=== PATIENT | female | born 2000 | race Caucasian/White ===

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

== ENCOUNTER 2019-03-25 13:05 | Emergency (ER) | payer SELFPAY ==
[2019-03-25 13:35] VITALS: O2SAT 100
--- NOTE | 2019-03-25 14:09 | ED.PDOC ---
History of Present Illness - General Chief Complaint: Abdominal Pain Stated Complaint: right sided abdominal pain Time Seen by Provider: 03/25/19 13:35 Information Source: patient Exam Limitations: no limitations - History of Present Illness Initial Comments: 18 yo F with hx of depression who presents for abd pain onset two weeks ago, diffuse, constant, associated nausea and diarrhea. Hx of chronic constipation with intermittent diarrhea. Was constipated for the past three days and took milk of mag today, now with NB diarrhea. Denies f/c, cough, congestion, CP, SOB, vomiting, urinary sx, vag sx. Review of Systems - Review of Systems Constitutional: Denies: chills, fever EENTM: Denies: nose congestion, throat pain Respiratory: Denies: cough, short of breath Cardiology: Denies: chest pain, palpitations Gastrointestinal/Abdominal: States: abdominal pain, constipation, diarrhea, nausea. Denies: vomiting Genitourinary: Denies: dysuria, frequency, hematuria Musculoskeletal: Denies: back pain, neck pain Skin: Denies: lesions, rash Neurological: Denies: headache, numbness, weakness Endocrine: Denies: increased thirst, increased urine Hematologic/Lymphatic: Denies: easy bleeding, easy bruising Past Medical History (General) - Patient Medical History Hx Seizures: No Hx Stroke: No Hx Dementia: No Hx Asthma: No Hx of COPD: No Hx Cardiac Disorders: No Hx Congestive Heart Failure: No Hx Pacemaker: No Hx Hypertension: No Hx Thyroid Disease: No Hx Diabetes: No Hx Gastroesophageal Reflux: No Hx Renal Disease: No Hx Cancer: No Hx of HIV: No Hx Hepatitis C: No Hx MRSA: No MRSA Source:: Wound - Vaccination History Hx Tetanus, Diphtheria Vaccination: Yes Hx Influenza Vaccination: No Hx Pneumococcal Vaccination: No - Social History Hx Tobacco Use: Yes Hx Chewing Tobacco Use: No Hx Alcohol Use: No Hx Substance Use: No Hx Substance Use Treatment: No Hx Depression: Yes Hx Physical Abuse: No Hx Emotional Abuse: No Hx Suspected Abuse: No - Female History Patient is a Female of Child Bearing Age (10 -59 yrs old): Yes Hx Last Menstrual Period: 04/05/18 Patient : No Family Medical History - Family History Mother Family History: Unknown Hx Family Hypertension: Yes - dad Hx Family Diabetes: Yes - dad Physical Exam - Physical Exam General Appearance: Alert, Comfortable, No apparent distress, Well Developed, Well Nourished Eyes, Ears, Nose, Throat Exam: normal ENT inspection Neck: full range of motion, supple Respiratory: chest non-tender, lungs clear, normal breath sounds, no respiratory distress, no accessory muscle use Cardiovascular/Chest: normal peripheral pulses, regular rate, rhythm, no edema, no gallop, no JVD, no murmur Peripheral Pulses: No deficit Gastrointestinal/Abdominal: normal bowel sounds, soft, no organomegaly, no pulsatile mass, other - Generalized discomfort Back Exam: normal inspection, no CVA tenderness, no vertebral tenderness Extremity: normal range of motion, non-tender, normal inspection, no pedal edema Neurologic: no motor/sensory deficits, alert, normal mood/affect, oriented x 3 Skin Exam: normal color, warm/dry, other - healed lacerations to wrist Progress - Progress Progress: I have explained and reviewed all results with the pt. Pt is feeling better, comfortable wtih d/c home. I explained that emergent conditions may arise and to return to the ER for new, worsening, or any persistent conditions. I've explained the importance of f/u for recheck. All questions and concerns addressed at this time. Pt understands and agrees with plan. Pt well appearing, NAD, is stable for discharge. Rosey Sidhu MD Emergency Medicine Physician Billing Number [id number] - Results/Orders Results/Orders: 03/25/19 14:07 Hold Metformin x 48Hrs [id number] Laboratory Results - last 24 hr 03/25/19 03/25/19 03/25/19 13:48 13:48 13:48 WBC 7.1 RBC 4.74 Hgb 14.2 Hct 42.8 MCV 90.4 MCH 30.0 MCHC 33.2 RDW 13.3 Plt Count 315 MPV 8.7 Absolute Neuts (auto) 4.60 Absolute Lymphs (auto) 1.70 Absolute Monos (auto) 0.70 Absolute Eos (auto) 0.10 Absolute Basos (auto) 0.10 Neutrophils % 65.3 Lymphocytes % 23.5 Monocytes % 9.5 H Eosinophils % 1.0 Basophils % 0.7 Sodium 142 Potassium 3.5 L Chloride 104 Carbon Dioxide 30 Anion Gap 11.5 L BUN 13 Creatinine 0.83 BUN/Creatinine Ratio 15.7 Random Glucose 110 H Serum Osmolality 283.9 Calcium 9.6 Total Bilirubin 0.9 AST 20 ALT 20 Alkaline Phosphatase 65 L Serum Total Protein 8.1 Albumin 4.6 Globulin 3.5 Albumin/Globulin Ratio 1.3 Lipase 35 Serum HCG, Qual Negative Urine Color Urine Appearance Urine pH Ur Specific [place] Urine Protein Urine Glucose (UA) Urine Ketones Urine Blood Urine Nitrite Urine Bilirubin Urine Urobilinogen Ur Leukocyte Esterase Urine RBC Urine WBC Ur Epithelial Cells Triple Phos Crystals Amorphous Sediment Urine Bacteria 03/25/19 14:15 WBC RBC Hgb Hct MCV MCH MCHC RDW Plt Count MPV Absolute Neuts (auto) Absolute Lymphs (auto) Absolute Monos (auto) Absolute Eos (auto) Absolute Basos (auto) Neutrophils % Lymphocytes % Monocytes % Eosinophils % Basophils % Sodium Potassium Chloride Carbon Dioxide Anion Gap BUN Creatinine BUN/Creatinine Ratio Random Glucose Serum Osmolality Calcium Total Bilirubin AST ALT Alkaline Phosphatase Serum Total Protein Albumin Globulin Albumin/Globulin Ratio Lipase Serum HCG, Qual Urine Color Yellow Urine Appearance Cloudy Urine pH 7.5 Ur Specific [place] 1.020 Urine Protein Negative Urine Glucose (UA) Negative Urine Ketones Negative Urine Blood Negative Urine Nitrite Negative Urine Bilirubin Negative Urine Urobilinogen 0.2 Ur Leukocyte Esterase Negative Urine RBC 0 Urine WBC 0-1 Ur Epithelial Cells 5-10 Triple Phos Crystals 1+ Amorphous Sediment 2+ Urine Bacteria Rare CT abd/pelvis: EXAM DESCRIPTION: Abdomen/Pelvis w/Contrast CLINICAL HISTORY: 18 years Female, abd pain COMPARISON: None available. TECHNIQUE: Contiguous 3 mm axial images were obtained from the lung bases to the level of the proximal femora after the administration of intravenous and oral contrast. Sagittal and coronal reconstructions were reviewed. FINDINGS: THORAX: The imaged lower thorax demonstrates no gross abnormality. LIVER: The liver demonstrates normal size and density with no intrahepatic biliary ductal dilatation or focal masses. GALLBLADDER: Grossly unremarkable. PANCREAS: Appears normal with no cystic or solid lesions. SPLEEN: Normal ADRENAL GLANDS: Normal with no nodules or masses. KIDNEYS: Both kidneys enhance symmetrically with no hydronephrosis or nephrolithiasis or perinephric fluid collections. No focal masses are identified. The visualized ureters appear grossly unremarkable. STOMACH: Not well distended limiting detailed evaluation. SMALL BOWEL: The small bowel loops demonstrate variable degrees of distention with no abnormal dilatation or other signs to suggest bowel obstruction. LARGE BOWEL: Colon is not well-distended limiting detailed evaluation. The appendix is not definitively visualized, however no secondary signs to suggest acute appendicitis. No evidence of free intraperitoneal air or fluid. RETROPERITONEUM: The abdominal aorta is nonaneurysmal with no significant atherosclerosis. The inferior vena cava is normal in size and caliber. Multiple subcentimeter mesenteric lymph nodes are identified most like representing mesenteric adenitis. URINARY BLADDER:The urinary bladder is well-distended with no gross abnormality. The uterus and adnexa appear normal. ADDITIONAL FINDINGS: None. BONES: No significant degenerative changes are identified in the visualized bones.No evidence of osteophytic or osteoblastic lesions. IMPRESSION: No acute intra-abdominal or intrapelvic process. Multiple subcentimeter mesenteric lymph nodes could represent mesenteric adenitis. This exam was performed according to our departmental dose-optimization program, which includes automated exposure control, adjustment of the mA and/or kV according to patient size and/or use of iterative reconstruction technique. Electronically signed by: Christy Giordano MD 03/25/2019 2:47 PM PUBLISHING DIRECTOR Vital Signs - 24 hr 03/25/19 13:32 Temperature 96.7 F L Pulse Rate [ 98 H Left Brachial] Respiratory 20 Rate Blood Pressure 130/89 [Left Arm] O2 Sat by Pulse 100 Oximetry Departure - Departure Clinical Impression: Acute abdominal pain, Alternating constipation and diarrhea, Mesenteric lymphadenopathy Time of Disposition: 15:07 Disposition: Discharge to Home or Self Care Health Concerns: condition: stable Departure Forms: ED Discharge - Pt. Copy, Patient Portal Self Enrollment Instructions: DI for Abdominal Pain-Adult Referrals: CARLYLE SARKAR MD [Primary Care Provider] - 1-5 Days ALEXIS WALL MD [Consulting Staff] - 1 Week Prescriptions: Ondansetron Odt [Zofran ODT] 4 mg PO Q6H PRN #12 tab PRN Reason: Nausea Home Medications: Ambulatory Orders Buspirone HCl 03/25/19 Ondansetron Odt [Zofran ODT] 4 mg PO Q6H PRN #12 tab 03/25/19 [email or web address] 03/25/19 Additional Instructions: Follow up: [facility] As needed, if symptoms worsen
--- NOTE | 2019-03-25 14:48 | CT ---
EXAM DESCRIPTION: Abdomen/Pelvis w/Contrast CLINICAL HISTORY: 18 years Female, abd pain COMPARISON: None available. TECHNIQUE: Contiguous 3 mm axial images were obtained from the lung bases to the level of the proximal femora after the administration of intravenous and oral contrast. Sagittal and coronal reconstructions were reviewed. FINDINGS: THORAX: The imaged lower thorax demonstrates no gross abnormality. LIVER: The liver demonstrates normal size and density with no intrahepatic biliary ductal dilatation or focal masses. GALLBLADDER: Grossly unremarkable. PANCREAS: Appears normal with no cystic or solid lesions. SPLEEN: Normal ADRENAL GLANDS: Normal with no nodules or masses. KIDNEYS: Both kidneys enhance symmetrically with no hydronephrosis or nephrolithiasis or perinephric fluid collections. No focal masses are identified. The visualized ureters appear grossly unremarkable. STOMACH: Not well distended limiting detailed evaluation. SMALL BOWEL: The small bowel loops demonstrate variable degrees of distention with no abnormal dilatation or other signs to suggest bowel obstruction. LARGE BOWEL: Colon is not well-distended limiting detailed evaluation. The appendix is not definitively visualized, however no secondary signs to suggest acute appendicitis. No evidence of free intraperitoneal air or fluid. RETROPERITONEUM: The abdominal aorta is nonaneurysmal with no significant atherosclerosis. The inferior vena cava is normal in size and caliber. Multiple subcentimeter mesenteric lymph nodes are identified most like representing mesenteric adenitis. URINARY BLADDER:The urinary bladder is well-distended with no gross abnormality. The uterus and adnexa appear normal. ADDITIONAL FINDINGS: None. BONES: No significant degenerative changes are identified in the visualized bones.No evidence of osteophytic or osteoblastic lesions. IMPRESSION: No acute intra-abdominal or intrapelvic process. Multiple subcentimeter mesenteric lymph nodes could represent mesenteric adenitis. This exam was performed according to our departmental dose-optimization program, which includes automated exposure control, adjustment of the mA and/or kV according to patient size and/or use of iterative reconstruction technique. Electronically signed by: Christy Giordano MD 03/25/2019 2:47 PM [facility]
[2019-03-25 15:31] VITALS: BP 113/80; TEMP 97.5
== END 2019-03-25 15:31 | disposition home or self-care (01) ==
LOC: ER 13:05
DX: R10.84 Generalized abdominal pain (principal); R19.7 Diarrhea, unspecified; K59.00 Constipation, unspecified; R59.0 Localized enlarged lymph nodes; R11.0 Nausea; F32.9 Major depressive disorder, single episode, unspecified; Z87.891 Personal history of nicotine dependence

== ENCOUNTER 2019-09-25 03:42 | Emergency (ER) | payer SELFPAY ==
--- NOTE | 2019-09-25 05:08 | ED.PDOC ---
History of Present Illness - General Source: patient Exam Limitations: no limitations - History of Present Illness Initial Comments: 19 yo F who has hx of BPD who presents for palpitations onset tonight, intermittent, associated tightness around her heart, states it is very mild right now but rates it at a 6/10, when sx at worst associated SOB. Hx of hyperthyroid. Denies f/c, cough, congestion, sore throat, body aches, COVID exposure, abd pain, n/v/d, diaphoresis, weakness, numbness. <Rosey Sidhu - Last Filed: 09/25/19 06:49> <Crescencio Brunson - Last Filed: 09/25/19 07:44> - General Chief Complaint: Cardiovascular Problem Stated Complaint: heart palpatations, dizzy, pain to upper shoulder Time Seen by Provider: 09/25/19 04:34 - History of Present Illness Allergies/Adverse Reactions: Allergies Shellfish Allergy Allergy (Verified 09/25/19 06:46) Sulfa Antibiotics Allergy (Verified 07/20/18 22:46) Hives Home Medications: Ambulatory Orders Buspirone HCl 03/25/19 Ondansetron Odt [Zofran ODT] 4 mg PO Q6H PRN #12 tab 03/25/19 risperiDONE 03/25/19 Review of Systems - Review of Systems Constitutional: Denies: chills, fever EENTM: Denies: nose congestion, throat pain Respiratory: States: short of breath. Denies: cough, stridor, wheezing Cardiology: States: chest pain, palpitations. Denies: edema, syncope Gastrointestinal/Abdominal: Denies: abdominal pain, constipation, diarrhea, nausea, vomiting Genitourinary: Denies: dysuria, frequency, hematuria Musculoskeletal: Denies: back pain, neck pain Skin: Denies: lesions, rash Neurological: Denies: headache, numbness, weakness Endocrine: Denies: increased thirst, increased urine Hematologic/Lymphatic: Denies: easy bleeding, easy bruising <Rosey Sidhu - Last Filed: 09/25/19 06:49> Past Medical History (General) - Patient Medical History Hx Seizures: No Hx Stroke: No Hx Dementia: No Hx Asthma: No Hx of COPD: No Hx Cardiac Disorders: No Hx Congestive Heart Failure: No Hx Pacemaker: No Hx Hypertension: No Hx Thyroid Disease: No Hx Diabetes: No Hx Gastroesophageal Reflux: No Hx Renal Disease: No Hx Cancer: No Hx of HIV: No Hx Hepatitis C: No Hx MRSA: No MRSA Source:: Wound - Vaccination History Hx Tetanus, Diphtheria Vaccination: Yes Hx Influenza Vaccination: No Hx Pneumococcal Vaccination: No - Social History Hx Tobacco Use: Yes Hx Chewing Tobacco Use: No Hx Alcohol Use: No Hx Substance Use: No Hx Substance Use Treatment: No Hx Depression: Yes Hx Physical Abuse: No Hx Emotional Abuse: No Hx Suspected Abuse: No - Female History Hx Last Menstrual Period: 04/05/18 Patient : No <Rosey Sidhu - Last Filed: 09/25/19 06:49> Family Medical History - Family History Mother Family History: Unknown Hx Family Hypertension: Yes - dad Hx Family Diabetes: Yes - dad <Rosey Sidhu - Last Filed: 09/25/19 06:49> Physical Exam - Physical Exam General Appearance: Alert, Comfortable, No apparent distress, Well Developed, Well Nourished Eyes, Ears, Nose, Throat Exam: normal ENT inspection Neck: full range of motion, supple Respiratory: chest non-tender, lungs clear, normal breath sounds, no respiratory distress, no accessory muscle use Cardiovascular/Chest: normal peripheral pulses, regular rate, rhythm, no edema, no gallop, no JVD, no murmur Peripheral Pulses: radial,right: 2+, radial,left: 2+ Gastrointestinal/Abdominal: non tender, soft, no organomegaly, no pulsatile mass Extremity: non-tender, normal inspection, no pedal edema, no calf tenderness, normal capillary refill Neurologic: no motor/sensory deficits, alert, normal mood/affect, oriented x 3 Skin Exam: normal color, warm/dry <Rosey Sidhu - Last Filed: 09/25/19 06:49> Progress - Progress Progress: I have explained and reviewed all results with the pt, awaiting T4 and repeat trop results. All questions and concerns addressed at this time. Pt understands and agrees with plan. Pt well appearing, NAD, is stable for discharge. Care transferred to Dr. Brunson. Rosey Sidhu MD Emergency Medicine Physician Billing Number [id number] - Results/Orders Results/Orders: 09/25/19 04:45 EKG STAT 09/25/19 06:25 URINALYSIS Stat 09/25/19 06:42 THYROXINE (T4) Stat Laboratory Results - last 24 hr 09/25/19 09/25/19 09/25/19 04:53 04:53 04:53 WBC 8.6 RBC 4.44 Hgb 13.6 Hct 40.7 MCV 91.8 MCH 30.7 MCHC 33.5 RDW 13.1 Plt Count 299 MPV 8.9 Absolute Neuts (auto) 4.20 Absolute Lymphs (auto) 3.30 Absolute Monos (auto) 0.80 Absolute Eos (auto) 0.20 Absolute Basos (auto) 0.10 Neutrophils % 48.8 Lymphocytes % 38.9 Monocytes % 9.7 H Eosinophils % 1.8 Basophils % 0.8 D-Dimer, Quantitative 204 Sodium 142 Potassium 3.1 L Chloride 107 Carbon Dioxide 28 Anion Gap 10.1 L BUN 13 Creatinine 0.89 BUN/Creatinine Ratio 14.6 Random Glucose 69 L Serum Osmolality 281.6 Calcium 8.9 Total Bilirubin 0.7 AST 14 ALT 14 Alkaline Phosphatase 55 L Troponin I Serum Total Protein 7.2 Albumin 4.1 Globulin 3.1 Albumin/Globulin Ratio 1.3 TSH Urine HCG, Qual 09/25/19 09/25/19 09/25/19 04:53 04:53 06:25 WBC RBC Hgb Hct MCV MCH MCHC RDW Plt Count MPV Absolute Neuts (auto) Absolute Lymphs (auto) Absolute Monos (auto) Absolute Eos (auto) Absolute Basos (auto) Neutrophils % Lymphocytes % Monocytes % Eosinophils % Basophils % D-Dimer, Quantitative Sodium Potassium Chloride Carbon Dioxide Anion Gap BUN Creatinine BUN/Creatinine Ratio Random Glucose Serum Osmolality Calcium Total Bilirubin AST ALT Alkaline Phosphatase Troponin I < 0.02 Serum Total Protein Albumin Globulin Albumin/Globulin Ratio TSH 10.78 H Urine HCG, Qual Negative CXR: no acute process Vital Signs - 24 hr 09/25/19 04:30 Temperature 97.9 F Pulse Rate 86 Pulse Rate [ 86 tele monitor] Pulse Rate [ 98 H telemetry] Respiratory 18 Rate Blood Pressure 113/88 [Left Arm] O2 Sat by Pulse 99 Oximetry - EKG/XRAY/CT EKG: Sinus, no ST T wave changes Comments: Rate 102 <Rosey Sidhu - Last Filed: 09/25/19 06:49> - Progress Progress: 09/25/19 I assumed care from Dr. Sidhu at 0700, received detailed discussion regarding vitals, presentation, labs resulted and labs pending. I reviewed labs personally. Repeat troponin is negative, T4 is within normal limits. Suggestive of subclinical hypothyroidism. At this time, there is no indication for admission. I rechecked the patient. Her vital signs are normal at this time. Heart rate in the 90s, BP 109/60. She is resting comfortably. Pain resolved. I recommended she follow-up with her primary care doctor in 3 to 5 days for recheck. Strict warnings given to return to emergency room for worsening pain, increased palpitations, syncope, fever, or any other concerns - Results/Orders Results/Orders: 09/25/19 04:45 EKG STAT Laboratory Results - last 24 hr 09/25/19 09/25/19 09/25/19 04:53 04:53 04:53 WBC 8.6 RBC 4.44 Hgb 13.6 Hct 40.7 MCV 91.8 MCH 30.7 MCHC 33.5 RDW 13.1 Plt Count 299 MPV 8.9 Absolute Neuts (auto) 4.20 Absolute Lymphs (auto) 3.30 Absolute Monos (auto) 0.80 Absolute Eos (auto) 0.20 Absolute Basos (auto) 0.10 Neutrophils % 48.8 Lymphocytes % 38.9 Monocytes % 9.7 H Eosinophils % 1.8 Basophils % 0.8 D-Dimer, Quantitative 204 Sodium 142 Potassium 3.1 L Chloride 107 Carbon Dioxide 28 Anion Gap 10.1 L BUN 13 Creatinine 0.89 BUN/Creatinine Ratio 14.6 Random Glucose 69 L Serum Osmolality 281.6 Calcium 8.9 Total Bilirubin 0.7 AST 14 ALT 14 Alkaline Phosphatase 55 L Troponin I Serum Total Protein 7.2 Albumin 4.1 Globulin 3.1 Albumin/Globulin Ratio 1.3 TSH Thyroxine (T4) Urine Color Urine Appearance Urine pH Ur Specific [place] Urine Protein Urine Glucose (UA) Urine Ketones Urine Blood Urine Nitrite Urine Bilirubin Urine Urobilinogen Ur Leukocyte Esterase Urine RBC Urine WBC Ur Epithelial Cells Amorphous Sediment Urine Bacteria Urine Mucus Urine HCG, Qual 09/25/19 09/25/19 09/25/19 04:53 04:53 04:53 WBC RBC Hgb Hct MCV MCH MCHC RDW Plt Count MPV Absolute Neuts (auto) Absolute Lymphs (auto) Absolute Monos (auto) Absolute Eos (auto) Absolute Basos (auto) Neutrophils % Lymphocytes % Monocytes % Eosinophils % Basophils % D-Dimer, Quantitative Sodium Potassium Chloride Carbon Dioxide Anion Gap BUN Creatinine BUN/Creatinine Ratio Random Glucose Serum Osmolality Calcium Total Bilirubin AST ALT Alkaline Phosphatase Troponin I < 0.02 Serum Total Protein Albumin Globulin Albumin/Globulin Ratio TSH 10.78 H Thyroxine (T4) 7.23 Urine Color Urine Appearance Urine pH Ur Specific [place] Urine Protein Urine Glucose (UA) Urine Ketones Urine Blood Urine Nitrite Urine Bilirubin Urine Urobilinogen Ur Leukocyte Esterase Urine RBC Urine WBC Ur Epithelial Cells Amorphous Sediment Urine Bacteria Urine Mucus Urine HCG, Qual 09/25/19 09/25/19 09/25/19 06:25 06:25 06:54 WBC RBC Hgb Hct MCV MCH MCHC RDW Plt Count MPV Absolute Neuts (auto) Absolute Lymphs (auto) Absolute Monos (auto) Absolute Eos (auto) Absolute Basos (auto) Neutrophils % Lymphocytes % Monocytes % Eosinophils % Basophils % D-Dimer, Quantitative Sodium Potassium Chloride Carbon Dioxide Anion Gap BUN Creatinine BUN/Creatinine Ratio Random Glucose Serum Osmolality Calcium Total Bilirubin AST ALT Alkaline Phosphatase Troponin I < 0.02 Serum Total Protein Albumin Globulin Albumin/Globulin Ratio TSH Thyroxine (T4) Urine Color Yellow Urine Appearance Cloudy Urine pH 6.0 Ur Specific [place] >= 1.030 Urine Protein Negative Urine Glucose (UA) Negative Urine Ketones Negative Urine Blood Negative Urine Nitrite Negative Urine Bilirubin Negative Urine Urobilinogen 0.2 Ur Leukocyte Esterase Negative Urine RBC 0-1 Urine WBC 10-20 H Ur Epithelial Cells 10-20 Amorphous Sediment 1+ Urine Bacteria 1+ Urine Mucus Large Urine HCG, Qual Negative <Crescencio Brunson - Last Filed: 09/25/19 07:44> Departure <Rosey Sidhu - Last Filed: 09/25/19 06:49> - Departure Time of Disposition: 07:40 Diet: resume usual diet Activity: increase activity as tolerated <Crescencio Brunson - Last Filed: 09/25/19 07:44> - Departure Clinical Impression: Palpitations, SOB (shortness of breath), Hypokalemia, Subclinical hypothyroidism Chest pain Qualifiers: Chest pain type: unspecified Qualified Code(s): R07.9 - Chest pain, unspecified Disposition: Discharge to Home or Self Care Condition: Good Departure Forms: ED Discharge - Pt. Copy, Patient Portal Self Enrollment Instructions: DI for Chest Pain Referrals: CARLYLE SARKAR MD [Primary Care Provider] - 1-5 Days Home Medications: Ambulatory Orders Buspirone HCl 03/25/19 Ondansetron Odt [Zofran ODT] 4 mg PO Q6H PRN #12 tab 03/25/19 risperiDONE 03/25/19
[2019-09-25] MEDS ORDERED: ACETAMINOPHEN IV 1000MG 1,000 MG in PREMIX BOTTLE 1 BOTTLE IVPB ONE (05:11)
--- NOTE | 2019-09-25 06:39 | RAD ---
EXAM: XR Chest, 2 Views CLINICAL HISTORY: The patient is 19 years old and is Female; CP TECHNIQUE: Frontal and lateral views of the chest. COMPARISON: Chest radiograph May 03, 2018. FINDINGS: LUNGS: Unremarkable. No consolidation. PLEURAL SPACE: Unremarkable. No pneumothorax. HEART: Unremarkable. No cardiomegaly. MEDIASTINUM: Unremarkable. BONES/JOINTS: Unremarkable. IMPRESSION: No acute cardiopulmonary process. Electronically signed by: Lety Bailon MD 09/25/2019 6:37 AM CDT
[2019-09-25 06:45] VITALS: O2SAT 100
[2019-09-25] MEDS ORDERED: POTASSIUM CHLORIDE 20 MEQ TAB PO ONE (06:48)
[2019-09-25 08:07] VITALS: BP 128/80; TEMP 96.9
== END 2019-09-25 07:59 | disposition home or self-care (01) ==
LOC: ER 03:42
DX: R00.2 Palpitations (principal); R07.9 Chest pain, unspecified; E87.6 Hypokalemia; E02 Subclinical iodine-deficiency hypothyroidism; R06.02 Shortness of breath; Z87.891 Personal history of nicotine dependence

== ENCOUNTER 2020-03-31 13:21 | Emergency (ER) | payer SELFPAY ==
[2020-03-31] MEDS ORDERED: ONDANSETRON ODT 8 MG TAB SL ONE (13:38)
--- NOTE | 2020-03-31 13:42 | ED.PDOC ---
History of Present Illness - General Time Seen by Provider: 03/31/20 13:23 Source: patient, RN notes reviewed, Vital Signs reviewed Exam Limitations: no limitations - History of Present Illness Comments: 19 yo otherwise healthy female comes in with one day of not feeling well. Cough, pleuritic chest pain, body aches/back pain, nausea, congestion. no fever, no abd pain, diarrhea. no known sick contacts. denies recent travel. + sore throat. no change in taste or smell. Allergies/Adverse Reactions: Allergies Shellfish Allergy Allergy (Verified 09/25/19 06:46) Sulfa Antibiotics Allergy (Verified 09/25/19 07:49) Hives Review of Systems - Review of Systems Constitutional: States: malaise. Denies: chills, fever EENTM: States: nose congestion, throat pain Respiratory: States: cough. Denies: short of breath Cardiology: States: chest pain - with coughing Gastrointestinal/Abdominal: Denies: abdominal pain, diarrhea, nausea, vomiting Genitourinary: Denies: frequency, hematuria Musculoskeletal: States: back pain, muscle pain Skin: Denies: rash Neurological: Denies: headache, numbness, seizure Endocrine: Denies: unexplained weight loss Hematologic/Lymphatic: Denies: blood clots, easy bleeding, easy bruising Past Medical History (General) - Patient Medical History Hx Seizures: No Hx Stroke: No Hx Dementia: No Hx Asthma: No Hx of COPD: No Hx Cardiac Disorders: No Hx Congestive Heart Failure: No Hx Pacemaker: No Hx Hypertension: No Hx Thyroid Disease: No Hx Diabetes: No Hx Gastroesophageal Reflux: No Hx Renal Disease: No Hx Cancer: No Hx of HIV: No Hx Hepatitis C: No Hx MRSA: No MRSA Source:: Wound - Vaccination History Hx Tetanus, Diphtheria Vaccination: Yes Hx Influenza Vaccination: No Hx Pneumococcal Vaccination: No - Social History Hx Tobacco Use: Yes Hx Chewing Tobacco Use: No Hx Alcohol Use: No Hx Substance Use: No Hx Substance Use Treatment: No Hx Depression: Yes Hx Physical Abuse: No Hx Emotional Abuse: No Hx Suspected Abuse: No - Female History Patient is a Female of Child Bearing Age (10 -59 yrs old): Yes Hx Last Menstrual Period: 04/05/18 Patient : No Family Medical History - Family History Mother Family History: Unknown Hx Family Hypertension: Yes - dad Hx Family Diabetes: Yes - dad Physical Exam - Physical Exam General Appearance: Alert, Comfortable, No apparent distress, Well Developed, Well Groomed, Well Hydrated, Well Nourished Eye Exam: bilateral normal ENT Exam: hearing grossly normal, TMs normal, pharyngeal erythema Neck: non-tender, full range of motion, supple, normal inspection, trachea midline Respiratory: chest non-tender, lungs clear, normal breath sounds, no respiratory distress, no accessory muscle use Cardiovascular/Chest: normal peripheral pulses, regular rate, rhythm, no edema, no gallop, no JVD, no murmur Gastrointestinal/Abdominal: normal bowel sounds, non tender, soft, no organomegaly, no pulsatile mass Extremity: non-tender, normal inspection, no calf tenderness Neurologic: no motor/sensory deficits, alert, normal mood/affect, oriented x 3, other - no focal defcitis Skin Exam: normal color, warm/dry Progress - Progress Progress: 03/31/20 14:07 strep + I have reviewed medication, benefits, alternatives and side effects. Patient decided to proceed with medication.given Bicillin and dexamethasone. The data reviewed when caring for this patient included: nurse notes, prior records, etc. The history and assessments from nurses notes were reviewed and considered, and the patient's home medication list was also reviewed and considered. My assessment and the results of testing completed here in the ED were discussed with the patient/family. All questions were answered, and they express understanding of my assessment and the plan. They have been instructed to return if their symptoms worsen, and have been asked to follow up with their primary care physician to recheck today's presenting complaint. return precautions given. Tanja Lewis DO #[id number] - Results/Orders Results/Orders: partial ddx: covid, influenza, strep, other URI, allergic rhinitis, pnuemonia - EKG/XRAY/CT XRAY: chest - no acute cardiopulmonary pathology Departure - Departure Clinical Impression: Cough, Strep pharyngitis Time of Disposition: 14:06 Disposition: Discharge to Home or Self Care Condition: Fair Instructions: Sore Throat in Adults, Cough, Adult (DC), Cough, Runny Nose, and the Common Cold (DC) Diet: resume usual diet, other - honey for cough and sore throat. Activity: increase activity as tolerated Referrals: CARLYLE SARKAR MD [Primary Care Provider] - 1-2 Weeks
[2020-03-31] MEDS ORDERED: DEXAMETHASONE 4 MG TAB PO ONE (14:04)
[2020-03-31] MEDS ORDERED: PENICILLIN BENZATHINE 1.2 MU 1.2 MU/2 ML SYG IM ONE (14:05)
--- NOTE | 2020-03-31 14:06 | RAD ---
Study: Single Frontal Radiograph of the Chest. Indication:cough Comparison: September 25, 2019 Impression: Heart size normal. Lungs clear. No acute osseous abnormality. Electronically signed by: Sukhi Hodge MD 03/31/2020 2:05 PM [facility]
[2020-03-31 14:49] VITALS: BP 108/72; TEMP 97.4; O2SAT 99
== END 2020-03-31 14:41 | disposition home or self-care (01) ==
LOC: ER 13:21
DX: J02.0 Streptococcal pharyngitis (principal); R05 Cough; R07.1 Chest pain on breathing; Z20.828 Contact with and (suspected) exposure to other viral communicable diseases; F32.9 Major depressive disorder, single episode, unspecified; Z87.891 Personal history of nicotine dependence; Z88.2 Allergy status to sulfonamides; Z91.013 Allergy to seafood
CPT/HCPCS: 71045; 87486; 87581; 87633; 87635; 87880; J0561; J8540